=== PATIENT | male | born 2000 | race Caucasian/White ===

== ENCOUNTER 2024-10-02 01:42 | Emergency (ER) | payer OTHER, SELFPAY ==
[2024-10-02] VITALS (10 sets, daily range): BP systolic 99–136; BP diastolic 56–85; PULSE 54–76; RESP 16–24; TEMP 36.1–36.8; O2SAT 97–100; BMI 34.2
--- NOTE | 2024-10-02 01:55 | EKG_ITS ---
[place] [id number] [place] [id number] Test Date: 2024-10-02 Pat Name: Maycol Munoz Department: [facility] Room: Gender: Male Video Manager: : 2000 Requested By: Order Number: [id number] Reading MD: Brian Li MD Measurements Intervals [place] Rate: 69 P: 45 HI: 192 QRS: 53 QRSD: 100 T: 38 QT: 400 QTc: 428 Interpretive Statements Normal sinus rhythm with sinus arrhythmia Electronically Signed On 10-02-2024 7:10:48 PST by Brian Li MD
--- NOTE | 2024-10-02 01:59 | DI.US.S_ITS ---
PROCEDURE: US ABDOMEN LIMITED INDICATIONS: RUQ US eval for GB pathology TECHNIQUE: Real-time scanning was performed of the abdominal and retroperitoneal organs, with image documentation. COMPARISON: None. FINDINGS: Liver: Liver is normal in size and homogeneous in echotexture. Gallbladder: Non mobile echogenicity is present in the gallbladder neck measuring 1.4 cm. No wall thickening. No pericholecystic edema. Negative sonographic Sweet's sign. Biliary ducts: Intrahepatic bile ducts are non-dilated. Extrahepatic bile duct caliber is not well seen. Normal is 6-7 mm or less in diameter, or 10 mm or less post-cholecystectomy. Pancreas: Visualized portions of the pancreas are sonographically normal. Miscellaneous: No free abdominal fluid. IMPRESSION: Cholelithiasis without visualized wall thickening to suggest cholecystitis. Recommend clinical correlation. The above findings are concordant with preliminary report Dictated by: Stacy Newell M.D. on 10/02/2024 at 10:06 Approved by: Stacy Newell M.D. on 10/02/2024 at 10:07
--- NOTE | 2024-10-02 02:00 | ED.GENADULT ---
HPI - General Adult General Chief complaint: Abdominal Pain Stated complaint: abd pain, back pain Time Seen by Provider: 10/02/24 01:50 Source: patient Mode of arrival: Ambulatory History of Present Illness HPI narrative: Patient was an otherwise healthy 24-year-old male who is here for evaluation upper abdominal discomfort. He states he was woken from sleep approximately 1 hour prior to arrival here in the emergency department with discomfort. No vomiting. Reports the pain was in his back as well. He was never had anything like this in the past. No problems breathing. No chest pain. Went to bed last night without symptoms. Reports that his pain has improved somewhat since the onset but not completely resolved. No change in bowel habits. No urinary symptoms. Related Data Allergies Allergy/AdvReac Type Severity Reaction Status Date / Time No Known Drug Allergies Allergy Verified 10/02/24 01:51 Review of Systems Review of Systems ROS Unobtainable: All systems reviewed & are unremarkable except as noted in HPI and below Patient History Social History Smoking Status: Former smoker Smoking Status: Former smoker Exam Initial Vital Signs Initial Vital Signs: Vital Signs Pulse Rate 73 10/02/24 01:48 Pulse Oximetry 97 10/02/24 01:48 Const General: cooperative, comfortable and No ill appearing HENMT Head: normal to inspection and normocephalic Resp Effort & Inspection: normal respiratory effort Auscultation: clear to auscultation bilaterally Cardio Rate: regular rate Rhythm: regular rhythm GI Inspection: normal to inspection and non-distended Palpation: soft, No firm, No guarding and tender (Epigastric and right quadrant) Skin General: no rashes or lesions noted Neuro General: patient alert, patient awake and moves all extremities Course Orders Ordered: ED Orders 10/02/24 01:51 EKG-12 Lead Stat 10/02/24 01:59 US abdomen limited Stat 10/02/24 02:05 Complete Blood Count AUTO DIFF Stat Comprehensive Metabolic Panel Stat Lipase Stat Magnesium Stat Troponin & CK Cardiac Panel Stat 10/02/24 02:13 EKG-12 Lead Stat Discontinued Medications Al Hydrox/Mg Hydrox/Simethicone 20 ml/ Lidocaine HCl 15 ml 0 ml PO NOW ONE Stop: 10/02/24 02:00 Sodium Chloride (Normal Saline 0.9%) 1,000 mls @ 1,000 mls/hr IV BOLUS ONE Stop: 10/02/24 03:16 Last Admin: 10/02/24 02:27 Dose: 1,000 mls/hr Documented By: RAFAELA Ketorolac Tromethamine (Ketorolac 30 Mg/Ml Vial) 15 mg IV NOW ONE Stop: 10/02/24 02:00 Vital Signs Vital signs: Vital Signs - 8 hr 10/02/24 01:48 10/02/24 01:49 10/02/24 01:49 Temperature Pulse Rate 73 70 Respiratory Rate Blood Pressure 136/85 Pulse Oximetry 97 98 Oxygen Delivery Method 10/02/24 01:51 10/02/24 02:00 10/02/24 02:00 Temperature 96.9 F L Pulse Rate 74 68 Respiratory Rate 16 Blood Pressure 136/85 128/83 Pulse Oximetry 97 97 Oxygen Delivery Method Room Air 10/02/24 02:14 10/02/24 02:14 10/02/24 02:30 Temperature Pulse Rate 54 L Respiratory Rate 19 Blood Pressure 99/56 L 123/66 Pulse Oximetry 100 Oxygen Delivery Method 10/02/24 02:30 10/02/24 03:00 10/02/24 03:01 Temperature Pulse Rate 68 70 Respiratory Rate 18 23 Blood Pressure 122/59 L Pulse Oximetry 99 98 Oxygen Delivery Method 10/02/24 03:01 10/02/24 03:30 10/02/24 03:30 Temperature Pulse Rate 68 76 Respiratory Rate 21 24 Blood Pressure 114/72 Pulse Oximetry 99 98 Oxygen Delivery Method Room Air Medical Decision Making Lab Data Lab results reviewed: Yes I reviewed the patient's lab results. 10/02/24 02:05 10/02/24 02:05 Labs: Lab Results 10/02/24 Range/Units 02:05 WBC 7.1 (4.5-11.0) X10^3/uL RBC 5.13 (4.5-5.9) X10^6/uL Hgb 15.1 (13.5-17.5) g/dL Hct 43.3 (41-53) % MCV 84.5 (80-100) fL MCH 29.3 (26-34) PG MCHC 34.7 (30-36) % RDW 13.0 (11.6-14.8) % Plt Count 272 (150-400) X10^3/uL Neut % (Auto) 54.1 (50-75) % Lymph % (Auto) 29.9 (25-40) % [place] % (Auto) 11.6 (3-14) % Eos % (Auto) 3.5 (2-4) % Baso % (Auto) 0.9 (0-2) % Neut # (Auto) 3800 (1801-4013) /uL Lymph # (Auto) 2100 (6505-4959) /uL [place] # (Auto) 800 (0-900) /uL Eos # (Auto) 300 (0-450) /uL Baso # (Auto) 100 (0-100) /uL Sodium 139 (137-145) mmol/L Potassium 3.7 (3.4-5.1) mmol/L Chloride 105 (98-107) mmol/L Carbon Dioxide 25 (22-32) mmol/L BUN 14 (9-20) mg/dL Creatinine 0.76 (0.66-1.25) mg/dL Estimated GFR > 60 (>60) mL/min BUN/Creatinine Ratio 18.4 (6-22) Glucose 116 H (70-100) mg/dL Calcium 9.4 (8.4-10.2) mg/dL Magnesium 1.9 (1.6-2.3) mg/dL Total Bilirubin 0.5 (0.2-1.3) mg/dL AST 40 (17-59) IU/L ALT 65 H (<50) IU/L Alkaline Phosphatase 73 (38-126) U/L Total Creatine Kinase 115 (55-170) U/L Troponin I < 0.012 (0.01-0.034) ng/mL Total Protein 7.4 (6.3-8.2) g/dL Albumin 4.5 (3.5-5.0) g/dL Globulin 2.9 (1.7-4.1) g/dL Albumin/Globulin Ratio 1.6 (1.0-2.8) Lipase 139 (23-300) U/L ECG Data Attestation: I personally reviewed and interpreted this ECG as follows: Interpretation: Condition EKG sinus ventricular is 60 [place] Normal QRS No ST T wave changes Repeat EKG Sinus bradycardia Ventricular rate of 52 Normal axis Normal QRS ST T wave changes MDM Narrative Medical decision making narrative: after observation here in the emergency department patient reports complete resolution of all of his discomfort. He does have cholelithiasis without signs of an acute cholecystitis. No leukocytosis. A slight elevation in his ALT but bilirubin and AST are normal. Patient did have an event here in the ER where he had what appeared to be a syncopal episode. He stated that he was not feeling any discomfort. No nausea. No palpitations or shortness of breath. I have low suspicion that this was a seizure. When he was hooked to the monitor he was bradycardic into the 40s. His heart rate did improve. He states he has passed out in the past but every time it has been associated with some sort of an event that was going on particularly related to pain/anxiety. He was not feeling particularly anxious at the time of the event today. we did discuss this. Recommended that he talk with his primary doctor about the indications for a Holter monitor. Recommended that the patient follow-up with general surgery. We discussed return precautions and follow-up instructions. He expressed understanding and agreement. Discharge Plan Departure Patient Disposition: Home Clinical Impression: Cholelithiasis, Abdominal pain Instructions: DI for Gallstones Activity Restrictions/Additional Instructions: I do recommend that you contact your primary doctor for a follow-up to discuss the indications for Holter monitor. Also recommend that you follow-up with general surgery to discuss the indications for removal of your gallbladder. Recommend a bland diet for now that you can advance as tolerated. Return to the emergency department for new symptoms. Referrals: Hussein Almendarez MD [Physician] - Stand Alone Forms: Patient Portal/API/Survey
[2024-10-02 02:11] LABS: Add Manual Diff / Slide Review NO; Basophils Absolute Auto 100 /uL (0-100); Basophils Percent Auto 0.9 % (0-2); Eosinophils Absolute Auto 300 /uL (0-450); Eosinophils Percent Auto 3.5 % (2-4); Hematocrit 43.3 % (41-53); Hemoglobin 15.1 g/dL (13.5-17.5); Lymphocytes Absolute Auto 2100 /uL (1100-4500); Lymphocytes Percent Auto 29.9 % (25-40); Mean Corpuscular HGB Conc 34.7 % (30-36); Mean Corpuscular Hemoglobin 29.3 PG (26-34); Mean Corpuscular Volume 84.5 fL (80-100); Monocytes Absolute Auto 800 /uL (0-900); Monocytes Percent Auto 11.6 % (3-14); Neutrophils Absolute Auto 3800 /uL (1500-7000); Neutrophils Percent Auto 54.1 % (50-75); Platelet Count 272 X10^3/uL (150-400); Red Blood Cell Count 5.13 X10^6/uL (4.5-5.9); White Blood Cell Count 7.1 X10^3/uL (4.5-11.0)
--- NOTE | 2024-10-02 02:14 | EKG_ITS ---
[address] [address] Test Date: 2024-10-02 Pat Name: Maycol Munoz Department: Room: Gender: Male Casey Saw Operator: LIDIA ARIELLE : 2000 Requested By: Order Number: [id number] Reading MD: Brian Li MD Measurements Intervals [place] Rate: 52 P: 51 GA: 170 QRS: 56 QRSD: 98 T: 41 QT: 430 QTc: 399 Interpretive Statements Sinus bradycardia Early repolarization Electronically Signed On 10-02-2024 7:10:51 PST by Brian Li MD
[2024-10-02 02:24] LABS: Alanine Aminotransferase 65 IU/L (<50); Albumin 4.5 g/dL (3.5-5.0); Albumin Globulin Ratio 1.6 (1.0-2.8); Alkaline Phosphatase 73 U/L (38-126); Aspartate Aminotransferase 40 IU/L (17-59); BUN Creatinine Ratio 18.4 (6-22); Bilirubin Total 0.5 mg/dL (0.2-1.3); Blood Urea Nitrogen 14 mg/dL (9-20); Calcium 9.4 mg/dL (8.4-10.2); Carbon Dioxide 25 mmol/L (22-32); Chloride 105 mmol/L (98-107); Creatine Kinase 115 U/L (55-170); Estimated Glomerular Filt Rate > 60 mL/min (>60); Globulin 2.9 g/dL (1.7-4.1); Glucose 116 mg/dL (70-100); HEMOLYSIS 17 (0-50); Magnesium 1.9 mg/dL (1.6-2.3); Potassium 3.7 mmol/L (3.4-5.1); Sodium 139 mmol/L (137-145); Total Protein 7.4 g/dL (6.3-8.2)
[2024-10-02 02:27] LABS: Lipase 139 U/L (23-300)
[2024-10-02] MEDS: SODIUM CHLORIDE 0.9% 1,000 ML 1000 ML IV (02:27)
[2024-10-02 02:35] LABS: Troponin I < 0.012 ng/mL (0.01-0.034)
--- NOTE | 2024-10-02 02:36 | PC.NURSE ---
yelled for help, pt found unresponsive. when he was layed flat his eyes opened and started talking. provider in room. Pt pale, placed on cardiac cath lab radiology technologist and heart rate was 35.
== END 2024-10-02 03:52 | disposition home or self-care (01) ==
PROVIDERS: Emergency Provider Emergency Medicine
DX: K80.20 Calculus of gallbladder without cholecystitis without obstruction (principal); R10.10 Upper abdominal pain, unspecified; R00.1 Bradycardia, unspecified
CPT/HCPCS: 36415; 76705; 80053; 82550; 83690; 83735; 84484; 85025; 93005; 93010; 96360; 99284